=== PATIENT | female | born 1950 | race Caucasian/White ===

== ENCOUNTER 2021-01-09 18:41 | Emergency (ER) | payer OTHER ==
[~2021-01-09] VITALS: Ht 162.6 cm; Wt 63.5 kg
[2021-01-09] MEDS ORDERED: METHOTREXATE 22.5 M1 PO (18:57)
[2021-01-09 19:43] LABS: HEMATOCRIT 41.7 % (37.0-47.0); HEMOGLOBIN 13.9 gm/dL (12.0-15.0); MCH 30.3 pg (26.0-34.0); MCHC 33.3 g/dL (28.0-37.0); MPV 8.5 fl. (7.2-11.1); NUCLEATED RBCS 0 /100WBC; PLATELET COUNT* 93 thou/uL (150-400); RBC 4.58 mil/uL (4.20-5.00); RDW-CV 15.2 % (10.5-14.5); WBC 2.6 thou/uL (4.0-11.0)
[2021-01-09 19:52] LABS: CALCIUM 8.2 mg/dL (8.5-10.1); POTASSIUM 3.8 mmol/L (3.5-5.1)
[2021-01-09 20:02] LABS: ALBUMIN 3.5 g/dL (3.4-5.0); TOTAL BILIRUBIN 0.6 mg/dL (<0.1-1.0); TOTAL PROTEIN 6.4 g/dL (6.4-8.2)
[2021-01-09 20:16] LABS: ABSOLUTE EOSINOPHILS 0.1 thou/uL (0.0-0.7); ABSOLUTE LYMPHOCYTES 1.1 thou/uL (0.8-5.3); ABSOLUTE MONOCYTES 0.3 thou/uL (0.0-1.2); ABSOLUTE NEUTROPHILS 1.1 thou/uL (1.6-8.1); ANISOCYTOSIS Occasional; PLATELET ESTIMATE DECREASED
[2021-01-09 22:33] LABS: URINE BILIRUBIN NEGATIVE (Negative); URINE BLOOD NEGATIVE (Negative); URINE CLARITY CLEAR; URINE COLOR YELLOW; URINE GLUCOSE-RANDOM NEGATIVE (Negative); URINE KETONES TRACE (Negative); URINE LEUKOCYTES-REFLEX 1+ (Negative); URINE NITRITE-REFLEX NEGATIVE (Negative); URINE PROTEIN NEGATIVE (Negative); URINE UROBILINOGEN 0.2 E.U./dl (0.2-1.0)
[2021-01-09 22:51] LABS: BACTERIA-REFLEX 1-9 Few /HPF (None Seen); CRYSTALS None Seen /LPF (None Seen); HYALINE CASTS 0-3 Few /LPF (None Seen); MUCUS None Seen strn/LPF (None Seen); SQUAMOUS >10 Many /LPF (0-3); URINE RBC None Seen /HPF (0-2)
[2021-01-09 22:52] LABS: URINE WBC-REFLEX 6-15 Few /HPF (0-5)
[2021-01-09 23:41] VITALS: BP 142/84
--- NOTE | 2021-01-10 10:50 | EKG ---
[place] [address] ELECTROCARDIOGRAM REPORT Name: MAGDALENO HANNA Room: [facility]#: [id number] Admission: 01/09/21 Attend Phys: Discharge: 01/09/21 Date of : 50 Date of Service: 01/09/21 190 Report #: [id number] THIS REPORT FOR: //name// [facility] ED Test Date: 2021-01-09 Test Time: 19:08:00 Pat Name: MAGDALENO GARCÍAINSON Department: Room: Gender: F Senior Product Consultant: : [id number] Requested By: Raquel Valente Order Number: [id number] MD: Adolfo Valdivia Measurements Intervals [place] Rate: 79 P: 66 [place]: 194 QRS: -37 QRSD: 90 T: 74 QT: 382 QTc: 438 Interpretive Statements Sinus rhythm Low voltage, precordial leads Left ventricular hypertrophy No previous ECG available for comparison Electronically Signed On 01-10-2021 10:50:28 CDT by Adolfo Valdivia [email or web address] <ELECTRONICALLY SIGNED> By: Mick Valdivia MD, [facility] 01/10/21 1050 1908 1908 Mick Valdivia MD, [facility] /EPI
== END 2021-01-09 23:46 | disposition home or self-care (01) ==
LOC: M.ERS 18:41
PROVIDERS: Emergency Medicine
DX: R53.83 Other fatigue (principal); Z20.822 Contact with and (suspected) exposure to COVID-19; R77.8 Other specified abnormalities of plasma proteins; M06.9 Rheumatoid arthritis, unspecified